=== PATIENT | male | born 1955 | race Caucasian/White ===

== ENCOUNTER 2021-02-24 13:11 | Emergency (ER) | payer SELFPAY ==
[2021-02-24] MEDS ORDERED: methylPREDNISolone Sod Succ/PF 125 MG/2 ML VIAL ONE (13:31)
[2021-02-24 13:40] LABS: #Basophils 0.1 thou/uL (0.0-0.2); #Lymphocytes 0.8 thou/uL (1.20-3.40); #Monocytes 0.6 thou/uL (0.11-0.59); #Neutrophils 3.3 thou/uL (1.40-6.50); %Basophils 1.7 % (0.0-1.0); %Eosinophils 0.7 % (0.0-10.0); %Monocytes 11.6 % (0.0-10.0); Hemoglobin 15.2 g/dL (14.0-18.0); Mean Corpuscular HGB CONC 30.4 g/dL (32.0-36.0); Mean Corpuscular Hemoglobin 27.6 pg (27.0-31.0); Mean Corpuscular Volume 90.9 fL (78.0-98.0); Mean Platelet Volume 11.5 fL (7.4-10.4); Platelet Count 152 thou/uL (130-400); RBC Distribution Width 12.5 % (11.5-14.5); Red Blood Cell (RBC) Count 5.51 mill/uL (4.70-6.10); White Blood Cell (WBC) Count 4.7 thou/uL (4.8-10.8)
[2021-02-24 13:52] LABS: ALT (SGPT) 35 U/L (8-55); AST (SGOT) 24 U/L (5-34); Albumin 4.3 g/dL (3.4-4.8); Alkaline Phosphatase 112 U/L (40-110); Anion Gap 15 mmol/L (10-20); BUN (Urea Nitrogen) 9 mg/dL (8.4-25.7); Bilirubin, Total 1.1 mg/dL (0.2-1.2); CK (CPK) 54 U/L (30-200); Calc. Creatinine Clearance 0 mL/min (70-130); Calcium 9.3 mg/dL (7.8-10.44); Carbon Dioxide 30 mmol/L (23-31); Chloride 98 mmol/L (98-107); Globulin 2.7 g/dL (2.4-3.5); Glucose 118 mg/dL (80-115); Lipase 25 U/L (8-78); Potassium 3.5 mmol/L (3.5-5.1); Sodium 139 mmol/L (136-145)
[2021-02-24] MEDS ORDERED: Sodium Chloride 0.9% 1,000 ML ONE (14:40)
== END 2021-02-24 16:54 | disposition left against medical advice (07) ==
LOC: MADERS 13:11
DX: J44.1 Chronic obstructive pulmonary disease with (acute) exacerbation (principal); F17.210 Nicotine dependence, cigarettes, uncomplicated; Z79.51 Long term (current) use of inhaled steroids; Z79.899 Other long term (current) drug therapy
CPT/HCPCS: 71045; 80053; 82550; 83690; 84484; 85025; 93005; 94760; 96374; J2930; J7050; J7620

== ENCOUNTER 2021-03-03 10:47 | Emergency (ER) | payer SELFPAY ==
[2021-03-03 11:16] LABS: #Basophils 0.1 thou/uL (0.0-0.2); #Lymphocytes 1.7 thou/uL (1.20-3.40); #Monocytes 0.7 thou/uL (0.11-0.59); #Neutrophils 10.8 thou/uL (1.40-6.50); %Basophils 0.6 % (0.0-1.0); %Eosinophils 0.2 % (0.0-10.0); %Lymphocytes 12.5 % (21.0-51.0); %Monocytes 5.4 % (0.0-10.0); %Neutrophils 81.4 % (42.0-75.0); Hemoglobin 15.9 g/dL (14.0-18.0); Mean Corpuscular HGB CONC 31.6 g/dL (32.0-36.0); Mean Corpuscular Hemoglobin 28.2 pg (27.0-31.0); Mean Corpuscular Volume 89.2 fL (78.0-98.0); Mean Platelet Volume 10.9 fL (7.4-10.4); Platelet Count 251 thou/uL (130-400); RBC Distribution Width 12.5 % (11.5-14.5); Red Blood Cell (RBC) Count 5.63 mill/uL (4.70-6.10); White Blood Cell (WBC) Count 13.3 thou/uL (4.8-10.8)
[2021-03-03] MEDS ORDERED: methylPREDNISolone Sod Succ/PF 125 MG/2 ML VIAL ONE (11:33)
[2021-03-03 11:35] LABS: ALT (SGPT) 24 U/L (8-55); AST (SGOT) 11 U/L (5-34); Albumin 4.4 g/dL (3.4-4.8); Alkaline Phosphatase 93 U/L (40-110); Anion Gap 21 mmol/L (10-20); BUN (Urea Nitrogen) 11 mg/dL (8.4-25.7); Calc. Creatinine Clearance 0 mL/min (70-130); Calcium 9.7 mg/dL (7.8-10.44); Carbon Dioxide 29 mmol/L (23-31); Chloride 95 mmol/L (98-107); Globulin 2.8 g/dL (2.4-3.5); Glucose 127 mg/dL (80-115); Magnesium 2.1 mg/dL (1.6-2.6); Potassium 3.2 mmol/L (3.5-5.1); Protein, Total 7.2 g/dL (5.8-8.1); Sodium 142 mmol/L (136-145)
[2021-03-03 11:59] LABS: SARS-CoV-2 NAA Rapid Test Not Detected (NotDetected)
[2021-03-03 12:00] LABS: Base Excess-Venous 10.6 mmol/L (-2.0 to 3.0); Bicarbonate (HCO3v) 39.6 mmol/L (22.0-28.0); CO2 Tension (PvCO2) 68.1 mmHg (42.0-51.0); Calcium, Ionized 1.14 mmol/L (1.15-1.33); Chloride 97 mmol/L (98-107); Hemoglobin - Calc 16.7 g/dL (14.0-18.0); Potassium 2.8 mmol/L (3.5-5.1); Sodium 142 mmol/L (138-145); T. Carbon Dioxide 41.6 mmol/L (22.0-28.0); vO2 Saturation-calc 95.6 % (60.0-85.0)
== END 2021-03-03 17:58 | disposition short-term general hospital (02) ==
LOC: MADERS 10:47
DX: J96.00 Acute respiratory failure, unspecified whether with hypoxia or hypercapnia (principal); J44.1 Chronic obstructive pulmonary disease with (acute) exacerbation; F17.210 Nicotine dependence, cigarettes, uncomplicated; Z79.899 Other long term (current) drug therapy
CPT/HCPCS: 0240U; 71045; 80053; 82330; 82803; 83605; 83735; 83880; 84484; 85025; 87040; 93005; 96374; J2930; J7620

== ENCOUNTER 2022-01-14 12:14 | Outpatient (CLI) | payer MEDICAID | END 2022-01-14 12:15 | disposition home or self-care (01) | LOC: MADLAB 12:14 | PROVIDERS: ATTEND Registered Nurse | DX: M25.512 Pain in left shoulder (principal) ==

== ENCOUNTER 2022-09-02 09:35 | Emergency (ER) | payer MEDICAID, OTHER ==
[2022-09-02] MEDS ORDERED: methylPREDNISolone Sod Succ/PF 125 MG/2 ML VIAL ONE (10:11)
[2022-09-02] MEDS ORDERED: Sodium Chloride 0.9% 1,000 ML ONE (10:11)
[2022-09-02 10:18] LABS: #Basophils 0.1 thou/uL (0.0-0.2); #Eosinphils 0.1 thou/uL (0.0-0.7); #Monocytes 0.5 thou/uL (0.11-0.59); #Neutrophils 5.2 thou/uL (1.40-6.50); %Eosinophils 1.8 % (0.0-10.0); %Lymphocytes 14.5 % (21.0-51.0); %Monocytes 6.5 % (0.0-10.0); %Neutrophils 76.1 % (42.0-75.0); Hemoglobin 14.6 g/dL (14.0-18.0); Mean Corpuscular HGB CONC 31.3 g/dL (32.0-36.0); Mean Corpuscular Hemoglobin 27.3 pg (27.0-31.0); Mean Corpuscular Volume 87.1 fl (78.0-98.0); Mean Platelet Volume 11.5 fL (7.4-10.4); Platelet Count 173 10x3/uL (130-400); RBC Distribution Width 12.2 % (11.5-14.5); Red Blood Cell (RBC) Count 5.34 mill/uL (4.70-6.10); White Blood Cell (WBC) Count 6.8 10x3/uL (4.8-10.8)
[2022-09-02 10:30] LABS: ALT (SGPT) 21 U/L (8-55); AST (SGOT) 18 U/L (5-34); Albumin 4.1 g/dL (3.4-4.8); Alkaline Phosphatase 83 U/L (40-110); Anion Gap 12 mmol/L (10-20); BUN (Urea Nitrogen) 10 mg/dL (8.4-25.7); Bilirubin, Total 1.5 mg/dL (0.2-1.2); Calc. Creatinine Clearance 0 mL/min (70-130); Calcium 9.5 mg/dL (7.8-10.44); Carbon Dioxide 32 mmol/L (23-31); Chloride 96 mmol/L (98-107); Estimated GFR 81; Globulin 2.4 g/dL (2.4-3.5); Glucose 155 mg/dL (80-115); Potassium 3.3 mmol/L (3.5-5.1); Protein, Total 6.5 g/dL (5.8-8.1); Sodium 137 mmol/L (136-145)
[2022-09-02] MEDS ORDERED: Albuterol Sulfate 2.5 mg/3 ml Neb ONE (11:00)
[2022-09-02 11:14] LABS: Bicarbonate (HCO3v) 34.1 mmol/L (22.0-28.0); CO2 Tension (PvCO2) 69.7 mmHg (42.0-51.0); Calcium, Ionized 1.21 mmol/L (1.15-1.33); Chloride 98 mmol/L (98-107); Hemoglobin - Calc 15.1 g/dL (14.0-18.0); Potassium 3.7 mmol/L (3.5-5.1); Sodium 141 mmol/L (138-145); T. Carbon Dioxide 36.3 mmol/L (22.0-28.0); vO2 Saturation-calc 63.2 % (60.0-85.0)
[2022-09-02] MEDS ORDERED: Budesonide 0.5 MG/2 ML NEB NEB SCH (11:15)
== END 2022-09-02 12:42 | disposition left against medical advice (07) ==
LOC: MADERS 09:35
DX: J44.1 Chronic obstructive pulmonary disease with (acute) exacerbation (principal); E87.29 Other acidosis; E87.6 Hypokalemia; F17.210 Nicotine dependence, cigarettes, uncomplicated; Z79.899 Other long term (current) drug therapy
CPT/HCPCS: 36415; 71046; 80053; 82330; 82803; 84484; 85025; 85379; 93005; 94640; 94760; 96361; 96374; J2930; J7050; J7611; J7620; J7626

== ENCOUNTER 2022-12-16 16:31 | Emergency (ER) | payer OTHER ==
[2022-12-16] MEDS ORDERED: Ipratropium/Albuterol 3 ML NEB ONE ×2 (17:08→17:38)
[2022-12-16] MEDS ORDERED: methylPREDNISolone Sod Succ/PF 125 MG/2 ML VIAL ONE (17:08)
[2022-12-16 17:10] LABS: #Basophils 0.1 thou/uL (0.0-0.2); #Eosinphils 0.1 thou/uL (0.0-0.7); #Monocytes 0.5 thou/uL (0.11-0.59); #Neutrophils 6.4 thou/uL (1.40-6.50); %Eosinophils 1.7 % (0.0-10.0); %Lymphocytes 12.2 % (21.0-51.0); %Monocytes 6.5 % (0.0-10.0); %Neutrophils 78.6 % (42.0-75.0); Hemoglobin 15.5 g/dL (14.0-18.0); Mean Corpuscular HGB CONC 31.6 g/dL (32.0-36.0); Mean Corpuscular Hemoglobin 27.8 pg (27.0-31.0); Mean Corpuscular Volume 88.1 fl (78.0-98.0); Mean Platelet Volume 12.1 fL (7.4-10.4); Platelet Count 201 10x3/uL (130-400); Platelet Morphology Comment Appears Adequate; RBC Distribution Width 12.9 % (11.5-14.5); Red Blood Cell (RBC) Count 5.56 mill/uL (4.70-6.10); White Blood Cell (WBC) Count 8.2 10x3/uL (4.8-10.8)
[2022-12-16 17:14] LABS: ALT (SGPT) 29 U/L (8-55); AST (SGOT) 19 U/L (5-34); Albumin 4.7 g/dL (3.4-4.8); Alkaline Phosphatase 113 U/L (40-110); Anion Gap 14 mmol/L (10-20); BUN (Urea Nitrogen) 9 mg/dL (8.4-25.7); Bilirubin, Total 1.6 mg/dL (0.2-1.2); Calc. Creatinine Clearance 0 mL/min (70-130); Calcium 10.2 mg/dL (7.8-10.44); Carbon Dioxide 31 mmol/L (23-31); Chloride 97 mmol/L (98-107); Estimated GFR 82; Globulin 2.5 g/dL (2.4-3.5); Glucose 137 mg/dL (80-115); Magnesium 2.1 mg/dL (1.6-2.6); Potassium 3.8 mmol/L (3.5-5.1); Protein, Total 7.2 g/dL (5.8-8.1); Sodium 138 mmol/L (136-145)
== END 2022-12-16 18:04 | disposition home or self-care (01) ==
LOC: MADERS 16:31
DX: J44.1 Chronic obstructive pulmonary disease with (acute) exacerbation (principal); I27.20 Pulmonary hypertension, unspecified; F17.210 Nicotine dependence, cigarettes, uncomplicated
CPT/HCPCS: 71045; 80053; 83605; 83735; 83880; 84484; 85025; 87040; 93005; 96374; J2930; J7620

== ENCOUNTER 2023-01-01 02:10 | Emergency (ER) | payer OTHER ==
[2023-01-01] MEDS ORDERED: Ipratropium/Albuterol 3 ML NEB ONE ×2 (02:28→08:47)
[2023-01-01 02:35] LABS: #Basophils 0.1 thou/uL (0.0-0.2); #Eosinphils 0.1 thou/uL (0.0-0.7); #Lymphocytes 1.5 thou/uL (1.20-3.40); #Monocytes 0.5 thou/uL (0.11-0.59); #Neutrophils 7.9 thou/uL (1.40-6.50); %Basophils 1.1 % (0.0-1.0); %Eosinophils 1.3 % (0.0-10.0); %Lymphocytes 14.4 % (21.0-51.0); %Neutrophils 78.2 % (42.0-75.0); Hemoglobin 15.2 g/dL (14.0-18.0); Mean Corpuscular HGB CONC 30.4 g/dL (32.0-36.0); Mean Corpuscular Hemoglobin 27.7 pg (27.0-31.0); Mean Corpuscular Volume 91.4 fl (78.0-98.0); Mean Platelet Volume 11.2 fL (7.4-10.4); Platelet Count 212 10x3/uL (130-400); RBC Distribution Width 13.8 % (11.5-14.5); Red Blood Cell (RBC) Count 5.49 mill/uL (4.70-6.10); White Blood Cell (WBC) Count 10.1 10x3/uL (4.8-10.8)
[2023-01-01 02:50] LABS: Base Excess-Venous 2.1 mmol/L (-2.0 to 3.0); Bicarbonate (HCO3v) 32.8 mmol/L (22.0-28.0); CO2 Tension (PvCO2) 77.7 mmHg (42.0-51.0); Calcium, Ionized 1.19 mmol/L (1.15-1.33); Chloride 97 mmol/L (98-107); Hemoglobin - Calc 16.6 g/dL (14.0-18.0); Sodium 137 mmol/L (138-145); T. Carbon Dioxide 35.2 mmol/L (22.0-28.0); vO2 Saturation-calc 70.4 % (60.0-85.0)
[2023-01-01 02:59] LABS: ALT (SGPT) 25 U/L (8-55); AST (SGOT) 17 U/L (5-34); Albumin 3.9 g/dL (3.4-4.8); Alkaline Phosphatase 91 U/L (40-110); Anion Gap 13 mmol/L (10-20); BUN (Urea Nitrogen) 12 mg/dL (8.4-25.7); Bilirubin, Total 1.2 mg/dL (0.2-1.2); Calc. Creatinine Clearance 0 mL/min (70-130); Calcium 9.4 mg/dL (7.8-10.44); Carbon Dioxide 30 mmol/L (23-31); Chloride 99 mmol/L (98-107); Estimated GFR 86; Globulin 2.2 g/dL (2.4-3.5); Glucose 143 mg/dL (80-115); Potassium 4.4 mmol/L (3.5-5.1); Protein, Total 6.1 g/dL (5.8-8.1); Sodium 138 mmol/L (136-145)
[2023-01-01] MEDS ORDERED: cefTRIAXone (ROCEPHIN) 2 GM VIAL ONE (03:30)
[2023-01-01] MEDS ORDERED: Sodium Chloride 0.9% 100 ML ONE (03:30)
[2023-01-01 04:33] LABS: Base Excess-Venous 2.3 mmol/L (-2.0 to 3.0); Bicarbonate (HCO3v) 31.2 mmol/L (22.0-28.0); CO2 Tension (PvCO2) 66.3 mmHg (42.0-51.0); Calcium, Ionized 1.07 mmol/L (1.15-1.33); Chloride 100 mmol/L (98-107); Hemoglobin - Calc 15.2 g/dL (14.0-18.0); Potassium 4.1 mmol/L (3.5-5.1); Sodium 140 mmol/L (138-145); T. Carbon Dioxide 33.2 mmol/L (22.0-28.0); vO2 Saturation-calc 91.3 % (60.0-85.0)
[2023-01-01 08:10] LABS: Base Excess-Venous 1.4 mmol/L (-2.0 to 3.0); Bicarbonate (HCO3v) 29.8 mmol/L (22.0-28.0); CO2 Tension (PvCO2) 60.7 mmHg (42.0-51.0); Calcium, Ionized 1.13 mmol/L (1.15-1.33); Chloride 98 mmol/L (98-107); Hemoglobin - Calc 16.6 g/dL (14.0-18.0); Potassium 4.9 mmol/L (3.5-5.1); Sodium 136 mmol/L (138-145); T. Carbon Dioxide 31.7 mmol/L (22.0-28.0); vO2 Saturation-calc 77.4 % (60.0-85.0)
== END 2023-01-01 10:26 | disposition short-term general hospital (02) ==
LOC: MADERS 02:10
DX: J44.1 Chronic obstructive pulmonary disease with (acute) exacerbation (principal); R09.02 Hypoxemia; F17.210 Nicotine dependence, cigarettes, uncomplicated; Z79.899 Other long term (current) drug therapy
CPT/HCPCS: 71045; 80053; 82330; 82803; 83605; 83880; 84484; 85025; 85379; 87040; 93005; 94760; 96361; 96365; J0696; J3490; J7620

== ENCOUNTER 2023-01-27 12:05 | Emergency (ER) | payer MEDICARE, MEDICAID ==
[2023-01-27] MEDS ORDERED: Ipratropium Bromide 2.5 ml Neb ONE (12:29)
[2023-01-27] MEDS ORDERED: Albuterol 2.5 MG/0.5 ML NEB ONE (12:29)
[2023-01-27] MEDS ORDERED: methylPREDNISolone Sod Succ/PF 125 MG/2 ML VIAL ONE (12:39)
[2023-01-27 12:44] LABS: #Lymphocytes 0.7 thou/uL (1.20-3.40); #Monocytes 0.1 thou/uL (0.11-0.59); #Neutrophils 9.5 thou/uL (1.40-6.50); %Basophils 0.5 % (0.0-1.0); %Eosinophils 0.2 % (0.0-10.0); %Lymphocytes 6.6 % (21.0-51.0); %Monocytes 1.2 % (0.0-10.0); %Neutrophils 91.5 % (42.0-75.0); Hemoglobin 14.8 g/dL (14.0-18.0); Mean Corpuscular HGB CONC 31.7 g/dL (32.0-36.0); Mean Corpuscular Hemoglobin 27.7 pg (27.0-31.0); Mean Corpuscular Volume 87.4 fl (78.0-98.0); Mean Platelet Volume 10.5 fL (7.4-10.4); Platelet Count 221 10x3/uL (130-400); RBC Distribution Width 13.5 % (11.5-14.5); Red Blood Cell (RBC) Count 5.34 mill/uL (4.70-6.10); White Blood Cell (WBC) Count 10.4 10x3/uL (4.8-10.8)
[2023-01-27 13:02] LABS: ALT (SGPT) 17 U/L (8-55); AST (SGOT) 11 U/L (5-34); Albumin 4.2 g/dL (3.4-4.8); Alkaline Phosphatase 67 U/L (40-110); Anion Gap 14 mmol/L (10-20); BUN (Urea Nitrogen) 14 mg/dL (8.4-25.7); Bilirubin, Total 1.3 mg/dL (0.2-1.2); Calc. Creatinine Clearance 0 mL/min (70-130); Calcium 9.6 mg/dL (7.8-10.44); Carbon Dioxide 30 mmol/L (23-31); Chloride 96 mmol/L (98-107); Estimated GFR 75; Globulin 2.3 g/dL (2.4-3.5); Glucose 246 mg/dL (80-115); Potassium 3.7 mmol/L (3.5-5.1); Protein, Total 6.5 g/dL (5.8-8.1); Sodium 136 mmol/L (136-145)
[2023-01-27 13:14] LABS: Base Excess-Venous 6.7 mmol/L (-2.0 to 3.0); Bicarbonate (HCO3v) 35.8 mmol/L (22.0-28.0); CO2 Tension (PvCO2) 67.4 mmHg (42.0-51.0); vO2 Saturation-calc 80.2 % (60.0-85.0)
[2023-01-27 13:15] LABS: Calcium, Ionized 1.21 mmol/L (1.15-1.33); Chloride 96 mmol/L (98-107); Potassium 3.6 mmol/L (3.5-5.1); Sodium 135 mmol/L (138-145); T. Carbon Dioxide 37.8 mmol/L (22.0-28.0)
== END 2023-01-27 14:05 | disposition home or self-care (01) ==
LOC: MADERS 12:05
DX: J44.1 Chronic obstructive pulmonary disease with (acute) exacerbation (principal); F17.210 Nicotine dependence, cigarettes, uncomplicated
CPT/HCPCS: 71045; 80053; 82330; 82803; 83880; 84484; 85014; 85025; 93005; 94760; 96374; J2930; J7611

== ENCOUNTER 2023-02-05 03:48 | Emergency (ER) | payer MEDICARE, MEDICAID ==
[2023-02-05] MEDS ORDERED: Ipratropium/Albuterol 3 ML NEB ONE ×4 (04:08→15:26)
[2023-02-05 12:36] LABS: SARS-CoV-2 NAA Rapid Test Not Detected (NotDetected)
[2023-02-05] MEDS ORDERED: methylPREDNISolone Sod Succ/PF 125 MG/2 ML VIAL ONE (15:21)
[2023-02-05] MEDS ORDERED: Calcium Carbonate 500 MG ChewTAB ONE (15:25)
[2023-02-05] MEDS ORDERED: Magnesium 2 GM/50 ML BAG (IN WATER) ONE (15:30)
== END 2023-02-05 17:15 | disposition short-term general hospital (02) ==
LOC: MADERS 03:48
DX: J44.1 Chronic obstructive pulmonary disease with (acute) exacerbation (principal); J96.01 Acute respiratory failure with hypoxia; F17.210 Nicotine dependence, cigarettes, uncomplicated; Z79.899 Other long term (current) drug therapy; Z20.822 Contact with and (suspected) exposure to COVID-19
CPT/HCPCS: 71045; 96365; 96375; J2930; J3475; J7620; U0002

== ENCOUNTER 2023-05-02 18:56 | Emergency (ER) | payer MEDICARE, OTHER, MEDICAID ==
[2023-05-02] MEDS ORDERED: Ipratropium/Albuterol 3 ML NEB ONE ×3 (19:06→20:00)
[2023-05-02] MEDS ORDERED: Albuterol 2.5 MG/0.5 ML NEB ONE ×3 (19:06→20:00)
[2023-05-02] MEDS ORDERED: cefTRIAXone (ROCEPHIN) 1 GM VIAL ONE (19:15)
[2023-05-02] MEDS ORDERED: Sodium Chloride 0.9% 1,000 ML ONE (19:15)
[2023-05-02] MEDS ORDERED: Sodium Chloride 0.9% 100 ML ONE (19:15)
[2023-05-02] MEDS ORDERED: methylPREDNISolone Sod Succ/PF 125 MG/2 ML VIAL ONE (19:15)
[2023-05-02 19:27] LABS: #Basophils 0.1 thou/uL (0.0-0.2); #Eosinphils 0.2 thou/uL (0.0-0.7); #Monocytes 0.5 thou/uL (0.11-0.59); #Neutrophils 4.5 thou/uL (1.40-6.50); %Basophils 1.5 % (0.0-1.0); %Eosinophils 2.6 % (0.0-10.0); %Lymphocytes 16.1 % (21.0-51.0); %Monocytes 7.8 % (0.0-10.0); %Neutrophils 71.9 % (42.0-75.0); Hematocrit 43.1 % (42.0-52.0); Hemoglobin 13.9 g/dL (14.0-18.0); Mean Corpuscular HGB CONC 32.1 g/dL (32.0-36.0); Mean Corpuscular Hemoglobin 28.4 pg (27.0-31.0); Mean Corpuscular Volume 88.4 fl (78.0-98.0); Mean Platelet Volume 10.6 fL (7.4-10.4); Platelet Count 175 10x3/uL (130-400); RBC Distribution Width 13.5 % (11.5-14.5); Red Blood Cell (RBC) Count 4.88 mill/uL (4.70-6.10); White Blood Cell (WBC) Count 6.2 10x3/uL (4.8-10.8)
[2023-05-02 19:37] LABS: Base Excess-Venous 4.9 mmol/L (-2.0 to 3.0); Bicarbonate (HCO3v) 32.8 mmol/L (22.0-28.0); CO2 Tension (PvCO2) 60.8 mmHg (42.0-51.0); Chloride 100 mmol/L (98-107); Hemoglobin - Calc 15.5 g/dL (14.0-18.0); Potassium 3.6 mmol/L (3.5-5.1); Sodium 137 mmol/L (138-145); T. Carbon Dioxide 34.7 mmol/L (22.0-28.0); vO2 Saturation-calc 76.9 % (60.0-85.0)
[2023-05-02 19:38] LABS: ALT (SGPT) 14 U/L (8-55); AST (SGOT) 17 U/L (5-34); Albumin 4.1 g/dL (3.4-4.8); Alkaline Phosphatase 77 U/L (40-110); Anion Gap 14 mmol/L (10-20); BUN (Urea Nitrogen) 8 mg/dL (8.4-25.7); Bilirubin, Total 1.3 mg/dL (0.2-1.2); Calc. Creatinine Clearance 0 mL/min (70-130); Calcium 9.5 mg/dL (7.8-10.44); Carbon Dioxide 30 mmol/L (23-31); Chloride 100 mmol/L (98-107); Estimated GFR 96; Globulin 2.5 g/dL (2.4-3.5); Glucose 135 mg/dL (80-115); Potassium 3.8 mmol/L (3.5-5.1); Protein, Total 6.6 g/dL (5.8-8.1); Sodium 140 mmol/L (136-145)
== END 2023-05-02 20:46 | disposition home or self-care (01) ==
LOC: MADERS 18:56
DX: J44.1 Chronic obstructive pulmonary disease with (acute) exacerbation (principal); F17.210 Nicotine dependence, cigarettes, uncomplicated; Z79.899 Other long term (current) drug therapy
CPT/HCPCS: 71045; 80053; 82330; 82803; 85025; 93005; 94660; 94760; 96365; 96375; J0696; J2930; J3490; J7050; J7611; J7620

== ENCOUNTER 2023-05-04 06:59 | Emergency (ER) | payer MEDICARE, OTHER ==
[2023-05-04] MEDS ORDERED: Albuterol 2.5 MG/0.5 ML NEB ONE (07:20)
[2023-05-04 07:32] LABS: #Lymphocytes 0.6 thou/uL (1.20-3.40); #Monocytes 0.3 thou/uL (0.11-0.59); #Neutrophils 7.6 thou/uL (1.40-6.50); %Basophils 0.2 % (0.0-1.0); %Eosinophils 0.1 % (0.0-10.0); %Lymphocytes 7.1 % (21.0-51.0); %Monocytes 3.2 % (0.0-10.0); %Neutrophils 89.4 % (42.0-75.0); Hematocrit 38.6 % (42.0-52.0); Hemoglobin 12.3 g/dL (14.0-18.0); Mean Corpuscular Hemoglobin 28.6 pg (27.0-31.0); Mean Corpuscular Volume 89.4 fl (78.0-98.0); Mean Platelet Volume 10.9 fL (7.4-10.4); Platelet Count 168 10x3/uL (130-400); RBC Distribution Width 13.4 % (11.5-14.5); Red Blood Cell (RBC) Count 4.32 mill/uL (4.70-6.10); White Blood Cell (WBC) Count 8.5 10x3/uL (4.8-10.8)
[2023-05-04 07:46] LABS: Base Excess-Venous 1.2 mmol/L (-2.0 to 3.0); CO2 Tension (PvCO2) 59.6 mmHg (42.0-51.0); Calcium, Ionized 1.14 mmol/L (1.15-1.33); Chloride 107 mmol/L (98-107); Hemoglobin - Calc 12.9 g/dL (14.0-18.0); Potassium 3.7 mmol/L (3.5-5.1); Sodium 141 mmol/L (138-145); T. Carbon Dioxide 30.8 mmol/L (22.0-28.0); vO2 Saturation-calc 79.3 % (60.0-85.0)
[2023-05-04 07:53] LABS: ALT (SGPT) 12 U/L (8-55); AST (SGOT) 11 U/L (5-34); Albumin 3.8 g/dL (3.4-4.8); Alkaline Phosphatase 59 U/L (40-110); Anion Gap 15 mmol/L (10-20); BUN (Urea Nitrogen) 12 mg/dL (8.4-25.7); Bilirubin, Total 0.6 mg/dL (0.2-1.2); Calc. Creatinine Clearance 0 mL/min (70-130); Calcium 8.6 mg/dL (7.8-10.44); Carbon Dioxide 27 mmol/L (23-31); Chloride 105 mmol/L (98-107); Estimated GFR 97; Glucose 128 mg/dL (80-115); Potassium 3.8 mmol/L (3.5-5.1); Protein, Total 5.8 g/dL (5.8-8.1); Sodium 143 mmol/L (136-145)
[2023-05-04 07:57] LABS: Troponin I Less than 0.010 ng/mL (< 0.028)
== END 2023-05-04 09:05 | disposition home or self-care (01) ==
LOC: MADERS 06:59
DX: J44.1 Chronic obstructive pulmonary disease with (acute) exacerbation (principal); F17.210 Nicotine dependence, cigarettes, uncomplicated
CPT/HCPCS: 71045; 80053; 82330; 82803; 83605; 83880; 84484; 85025; 93005; 94760; J7611

== ENCOUNTER 2023-05-18 09:51 | Emergency (ER) | payer OTHER, MEDICARE ==
[2023-05-18] MEDS ORDERED: methylPREDNISolone Sod Succ/PF 125 MG/2 ML VIAL ONE (10:11)
[2023-05-18] MEDS ORDERED: Ipratropium/Albuterol 3 ML NEB ONE ×3 (10:11→11:24)
[2023-05-18] MEDS ORDERED: Sodium Chloride 0.9% 500 ML ONE ×2 (10:11→12:50)
[2023-05-18 10:12] LABS: #Basophils 0.1 thou/uL (0.0-0.2); #Eosinphils 0.1 thou/uL (0.0-0.7); #Lymphocytes 1.3 thou/uL (1.20-3.40); #Monocytes 0.4 thou/uL (0.11-0.59); #Neutrophils 6.1 thou/uL (1.40-6.50); %Basophils 1.3 % (0.0-1.0); %Eosinophils 1.4 % (0.0-10.0); %Lymphocytes 16.3 % (21.0-51.0); %Monocytes 4.8 % (0.0-10.0); %Neutrophils 76.2 % (42.0-75.0); Hematocrit 47.6 % (42.0-52.0); Hemoglobin 15.2 g/dL (14.0-18.0); Mean Corpuscular HGB CONC 31.8 g/dL (32.0-36.0); Mean Corpuscular Hemoglobin 28.3 pg (27.0-31.0); Mean Corpuscular Volume 88.9 fl (78.0-98.0); Mean Platelet Volume 9.6 fL (7.4-10.4); Platelet Count 243 10x3/uL (130-400); RBC Distribution Width 13.7 % (11.5-14.5); Red Blood Cell (RBC) Count 5.36 mill/uL (4.70-6.10); White Blood Cell (WBC) Count 7.9 10x3/uL (4.8-10.8)
[2023-05-18 10:32] LABS: ALT (SGPT) 15 U/L (8-55); AST (SGOT) 12 U/L (5-34); Albumin 4.4 g/dL (3.4-4.8); Alkaline Phosphatase 74 U/L (40-110); Anion Gap 13 mmol/L (10-20); BUN (Urea Nitrogen) 9 mg/dL (8.4-25.7); Bilirubin, Total 1.3 mg/dL (0.2-1.2); Calc. Creatinine Clearance 0 mL/min (70-130); Calcium 9.6 mg/dL (7.8-10.44); Carbon Dioxide 32 mmol/L (23-31); Chloride 97 mmol/L (98-107); Estimated GFR 90; Globulin 2.6 g/dL (2.4-3.5); Glucose 141 mg/dL (80-115); Magnesium 2.1 mg/dL (1.6-2.6); Potassium 3.7 mmol/L (3.5-5.1); Sodium 138 mmol/L (136-145)
[2023-05-18 12:43] LABS: Troponin I Less than 0.010 ng/mL (< 0.028)
[2023-05-18 13:07] LABS: Follow-up Chemistry Comp? YES
== END 2023-05-18 13:20 | disposition home or self-care (01) ==
LOC: MADERS 09:51
DX: J44.1 Chronic obstructive pulmonary disease with (acute) exacerbation (principal); F17.210 Nicotine dependence, cigarettes, uncomplicated
CPT/HCPCS: 71045; 80053; 83735; 83880; 84484; 85025; 93005; 96374; J2930; J7030; J7620

== ENCOUNTER 2023-05-24 17:18 | Emergency (ER) | payer OTHER, MEDICARE ==
[2023-05-24] MEDS ORDERED: Dexamethasone 10 MG/ML VIAL ONE (17:25)
[2023-05-24] MEDS ORDERED: Ipratropium/Albuterol 3 ML NEB ONE ×2 (17:25→18:03)
[2023-05-24 17:41] LABS: #Basophils 0.1 thou/uL (0.0-0.2); #Eosinphils 0.1 thou/uL (0.0-0.7); #Lymphocytes 1.8 thou/uL (1.20-3.40); #Monocytes 0.6 thou/uL (0.11-0.59); #Neutrophils 9.5 thou/uL (1.40-6.50); %Basophils 1.2 % (0.0-1.0); %Eosinophils 1.2 % (0.0-10.0); %Lymphocytes 14.7 % (21.0-51.0); %Monocytes 4.7 % (0.0-10.0); %Neutrophils 78.2 % (42.0-75.0); Hematocrit 46.8 % (42.0-52.0); Hemoglobin 14.9 g/dL (14.0-18.0); Mean Corpuscular HGB CONC 31.8 g/dL (32.0-36.0); Mean Corpuscular Volume 88.1 fl (78.0-98.0); Mean Platelet Volume 10.2 fL (7.4-10.4); Platelet Count 244 10x3/uL (130-400); Red Blood Cell (RBC) Count 5.32 mill/uL (4.70-6.10); White Blood Cell (WBC) Count 12.2 10x3/uL (4.8-10.8)
[2023-05-24 17:55] LABS: ALT (SGPT) 12 U/L (8-55); AST (SGOT) 10 U/L (5-34); Albumin 4.2 g/dL (3.4-4.8); Alkaline Phosphatase 69 U/L (40-110); Anion Gap 15 mmol/L (10-20); BUN (Urea Nitrogen) 11 mg/dL (8.4-25.7); Bilirubin, Total 0.8 mg/dL (0.2-1.2); Calc. Creatinine Clearance 0 mL/min (70-130); Calcium 9.2 mg/dL (7.8-10.44); Carbon Dioxide 30 mmol/L (23-31); Chloride 100 mmol/L (98-107); Estimated GFR 82; Globulin 2.5 g/dL (2.4-3.5); Glucose 159 mg/dL (80-115); Potassium 3.6 mmol/L (3.5-5.1); Protein, Total 6.7 g/dL (5.8-8.1)
[2023-05-24 17:59] LABS: Sodium 141 mmol/L (136-145)
[2023-05-24] MEDS ORDERED: Magnesium 2 GM/50 ML BAG (IN WATER) ONE (18:03)
[2023-05-24] MEDS ORDERED: Albuterol 2.5 MG/0.5 ML NEB ONE (18:38)
== END 2023-05-24 19:25 | disposition home or self-care (01) ==
LOC: MADERS 17:18
DX: J44.1 Chronic obstructive pulmonary disease with (acute) exacerbation (principal); F17.210 Nicotine dependence, cigarettes, uncomplicated; Z79.899 Other long term (current) drug therapy
CPT/HCPCS: 71045; 80053; 83880; 85025; 93005; 96374; 96375; J1100; J3475; J7611; J7620

== ENCOUNTER 2023-06-01 09:59 | Emergency (ER) | payer OTHER, MEDICARE | END 2023-06-01 10:45 | disposition home or self-care (01) | LOC: MADERS 09:59 | DX: U07.1 COVID-19 (principal); J44.9 Chronic obstructive pulmonary disease, unspecified; F17.210 Nicotine dependence, cigarettes, uncomplicated | CPT/HCPCS: 87635; 99284 ==

== ENCOUNTER 2023-06-02 10:16 | Emergency (ER) | payer OTHER, MEDICARE ==
[2023-06-02] MEDS ORDERED: Ipratropium/Albuterol 3 ML NEB ONE ×2 (10:43→12:47)
[2023-06-02] MEDS ORDERED: Magnesium 2 GM/50 ML BAG (IN WATER) ONE (10:47)
[2023-06-02 11:37] LABS: Band 8 % (5-11); Eosinophils 1 % (0-10); Hematocrit 42.2 % (42.0-52.0); Hemoglobin 13.9 g/dL (14.0-18.0); Lymphocytes 6 % (21-51); MDiff Complete? YES; Mean Corpuscular HGB CONC 32.9 g/dL (32.0-36.0); Mean Corpuscular Hemoglobin 28.2 pg (27.0-31.0); Mean Corpuscular Volume 85.9 fl (78.0-98.0); Mean Platelet Volume 10.6 fL (7.4-10.4); Monocytes 4 % (0-10); Neutrophil 80 % (42-75); Platelet Adequacy Comment Appears Adequate; Platelet Count 210 10x3/uL (130-400); RBC Distribution Width 12.9 % (11.5-14.5); Reactive Lymphocytes 1 % (0-10); Red Blood Cell (RBC) Count 4.92 mill/uL (4.70-6.10); White Blood Cell (WBC) Count 11.5 10x3/uL (4.8-10.8)
[2023-06-02 11:38] LABS: ALT (SGPT) 16 U/L (8-55); AST (SGOT) 12 U/L (5-34); Alkaline Phosphatase 69 U/L (40-110); Anion Gap 15 mmol/L (10-20); BUN (Urea Nitrogen) 12 mg/dL (8.4-25.7); Calc. Creatinine Clearance 0 mL/min (70-130); Calcium 9.2 mg/dL (7.8-10.44); Carbon Dioxide 29 mmol/L (23-31); Chloride 100 mmol/L (98-107); Estimated GFR 97; Globulin 2.4 g/dL (2.4-3.5); Glucose 119 mg/dL (80-115); Potassium 3.8 mmol/L (3.5-5.1); Protein, Total 6.4 g/dL (5.8-8.1); Sodium 140 mmol/L (136-145)
[2023-06-02 11:39] LABS: Troponin I Less than 0.010 ng/mL (< 0.028)
== END 2023-06-02 13:50 | disposition left against medical advice (07) ==
LOC: MADERS 10:16
DX: U07.1 COVID-19 (principal); J44.9 Chronic obstructive pulmonary disease, unspecified; F17.210 Nicotine dependence, cigarettes, uncomplicated
CPT/HCPCS: 71045; 80053; 84484; 85025; 93005; 96365; J3475; J7620

== ENCOUNTER 2023-06-28 13:03 | Emergency (ER) | payer MEDICARE ==
[~2023-06-28 13:03] MED LIST: Albuterol 2.5 MG/0.5 ML NEB ONE; Ipratropium/Albuterol 3 ML NEB ONE
[2023-06-28] MEDS ORDERED: methylPREDNISolone Sod Succ/PF 125 MG/2 ML VIAL ONE (13:23)
[2023-06-28] MEDS ORDERED: Magnesium 2 GM/50 ML BAG (IN WATER) ONE (13:23)
[2023-06-28 13:26] LABS: #Basophils 0.1 thou/uL (0.0-0.2); #Monocytes 0.3 thou/uL (0.11-0.59); #Neutrophils 11.1 thou/uL (1.40-6.50); %Basophils 0.6 % (0.0-1.0); %Eosinophils 0.2 % (0.0-10.0); %Monocytes 2.4 % (0.0-10.0); %Neutrophils 88.8 % (42.0-75.0); Hematocrit 47.7 % (42.0-52.0); Hemoglobin 14.8 g/dL (14.0-18.0); Mean Corpuscular Hemoglobin 27.8 pg (27.0-31.0); Mean Corpuscular Volume 89.7 fl (78.0-98.0); Mean Platelet Volume 9.6 fL (7.4-10.4); Platelet Count 286 10x3/uL (130-400); RBC Distribution Width 13.7 % (11.5-14.5); Red Blood Cell (RBC) Count 5.31 mill/uL (4.70-6.10); White Blood Cell (WBC) Count 12.5 10x3/uL (4.8-10.8)
[2023-06-28 13:37] LABS: ALT (SGPT) 16 U/L (8-55); AST (SGOT) 11 U/L (5-34); Albumin 4.7 g/dL (3.4-4.8); Alkaline Phosphatase 79 U/L (40-110); Anion Gap 18 mmol/L (10-20); BUN (Urea Nitrogen) 11 mg/dL (8.4-25.7); Calc. Creatinine Clearance 0 mL/min (70-130); Calcium 9.9 mg/dL (7.8-10.44); Carbon Dioxide 28 mmol/L (23-31); Chloride 97 mmol/L (98-107); Estimated GFR 95; Globulin 2.8 g/dL (2.4-3.5); Glucose 145 mg/dL (80-115); Potassium 3.8 mmol/L (3.5-5.1); Protein, Total 7.5 g/dL (5.8-8.1); Sodium 139 mmol/L (136-145)
[2023-06-28] MEDS ORDERED: Albuterol 2.5 MG/0.5 ML NEB ONE ×2 (13:38→14:15)
[2023-06-28] MEDS ORDERED: Ipratropium/Albuterol 3 ML NEB ONE ×2 (13:38→14:15)
[2023-06-28] MEDS ORDERED: cefTRIAXone (ROCEPHIN) 1 GM VIAL ONE (14:23)
[2023-06-28] MEDS ORDERED: Sodium Chloride 0.9% 100 ML ONE (14:23)
== END 2023-06-28 14:55 | disposition home or self-care (01) ==
LOC: MADERS 13:03
DX: J44.1 Chronic obstructive pulmonary disease with (acute) exacerbation (principal); F17.210 Nicotine dependence, cigarettes, uncomplicated; Z79.899 Other long term (current) drug therapy
CPT/HCPCS: 71045; 80053; 85025; 94760; 96365; 96375; J0696; J2930; J3475; J3490; J7611; J7620

== ENCOUNTER 2023-07-12 11:53 | Emergency (ER) | payer MEDICARE, OTHER ==
[2023-07-12] MEDS ORDERED: Ipratropium/Albuterol 3 ML NEB ONE ×3 (12:40→14:58)
[2023-07-12] MEDS ORDERED: Cefepime 1 GM VIAL ONE (12:51)
[2023-07-12] MEDS ORDERED: methylPREDNISolone Sod Succ/PF 125 MG/2 ML VIAL ONE (12:51)
[2023-07-12] MEDS ORDERED: Sterile Water 10 ML ONE (12:51)
== END 2023-07-12 15:37 | disposition left against medical advice (07) ==
LOC: MADERS 11:53
DX: J44.0 Chronic obstructive pulmonary disease with (acute) lower respiratory infection (principal); J20.9 Acute bronchitis, unspecified; J44.1 Chronic obstructive pulmonary disease with (acute) exacerbation; Z87.891 Personal history of nicotine dependence; Z79.899 Other long term (current) drug therapy
CPT/HCPCS: 71045; 96372; J0692; J2930; J7620

== ENCOUNTER 2023-07-20 10:14 | Emergency (ER) | payer MEDICARE, OTHER ==
[2023-07-20] MEDS ORDERED: methylPREDNISolone Sod Succ/PF 125 MG/2 ML VIAL ONE (10:39)
[2023-07-20] MEDS ORDERED: Ipratropium/Albuterol 3 ML NEB ONE (10:39)
[2023-07-20 11:00] LABS: #Lymphocytes 0.6 thou/uL (1.20-3.40); #Monocytes 0.3 thou/uL (0.11-0.59); #Neutrophils 12.2 thou/uL (1.40-6.50); %Basophils 0.3 % (0.0-1.0); %Eosinophils 0.2 % (0.0-10.0); %Lymphocytes 4.2 % (21.0-51.0); %Neutrophils 93.3 % (42.0-75.0); Hematocrit 44.4 % (42.0-52.0); Hemoglobin 13.7 g/dL (14.0-18.0); Mean Corpuscular HGB CONC 30.9 g/dL (32.0-36.0); Mean Corpuscular Hemoglobin 27.7 pg (27.0-31.0); Mean Corpuscular Volume 89.7 fl (78.0-98.0); Mean Platelet Volume 9.6 fL (7.4-10.4); Platelet Count 196 10x3/uL (130-400); RBC Distribution Width 13.4 % (11.5-14.5); Red Blood Cell (RBC) Count 4.95 mill/uL (4.70-6.10); White Blood Cell (WBC) Count 13.1 10x3/uL (4.8-10.8)
[2023-07-20] MEDS ORDERED: Doxycycline 100 MG CAP ONE (11:01)
[2023-07-20] MEDS ORDERED: Sodium Chloride 0.9% 500 ML ONE (11:01)
[2023-07-20 11:15] LABS: ALT (SGPT) 15 U/L (8-55); AST (SGOT) 11 U/L (5-34); Albumin 4.2 g/dL (3.4-4.8); Alkaline Phosphatase 59 U/L (40-110); Anion Gap 13 mmol/L (10-20); BUN (Urea Nitrogen) 11 mg/dL (8.4-25.7); Bilirubin, Total 1.5 mg/dL (0.2-1.2); Calc. Creatinine Clearance 0 mL/min (70-130); Calcium 9.1 mg/dL (7.8-10.44); Carbon Dioxide 35 mmol/L (23-31); Chloride 95 mmol/L (98-107); Estimated GFR 99; Globulin 2.2 g/dL (2.4-3.5); Glucose 135 mg/dL (80-115); Magnesium 2.2 mg/dL (1.6-2.6); Potassium 3.7 mmol/L (3.5-5.1); Protein, Total 6.4 g/dL (5.8-8.1); Sodium 139 mmol/L (136-145)
[2023-07-20 11:20] LABS: Troponin I Less than 0.010 ng/mL (< 0.028)
== END 2023-07-20 11:50 | disposition home or self-care (01) ==
LOC: MADERS 10:14
DX: J44.1 Chronic obstructive pulmonary disease with (acute) exacerbation (principal); F17.210 Nicotine dependence, cigarettes, uncomplicated
CPT/HCPCS: 36415; 71045; 80053; 83735; 83880; 84484; 85025; 93005; 96374; J2930; J7030; J7620

== ENCOUNTER 2023-08-08 13:07 | Emergency (ER) | payer MEDICARE, MEDICAID ==
[2023-08-08] MEDS ORDERED: Ipratropium/Albuterol 3 ML NEB ONE (13:12)
[2023-08-08] MEDS ORDERED: methylPREDNISolone Sod Succ/PF 125 MG/2 ML VIAL ONE (13:31)
[2023-08-08] MEDS ORDERED: Sodium Chloride 0.9% 1,000 ML ONE (13:31)
[2023-08-08 13:53] LABS: ALT (SGPT) 23 U/L (8-55); AST (SGOT) 13 U/L (5-34); Albumin 4.3 g/dL (3.4-4.8); Alkaline Phosphatase 56 U/L (40-110); Anion Gap 20 mmol/L (10-20); BUN (Urea Nitrogen) 14 mg/dL (8.4-25.7); Bilirubin, Total 1.5 mg/dL (0.2-1.2); Calc. Creatinine Clearance 0 mL/min (70-130); Calcium 9.4 mg/dL (7.8-10.44); Carbon Dioxide 25 mmol/L (23-31); Chloride 95 mmol/L (98-107); Estimated GFR 90; Globulin 2.1 g/dL (2.4-3.5); Glucose 226 mg/dL (80-115); Magnesium 2.2 mg/dL (1.6-2.6); Potassium 4.3 mmol/L (3.5-5.1); Protein, Total 6.4 g/dL (5.8-8.1); Sodium 136 mmol/L (136-145)
[2023-08-08 13:54] LABS: Troponin I Less than 0.010 ng/mL (< 0.028)
[2023-08-08 13:57] LABS: Hematocrit 47.2 % (42.0-52.0); Hemoglobin 14.8 g/dL (14.0-18.0); Mean Corpuscular HGB CONC 31.5 g/dL (32.0-36.0); Mean Corpuscular Hemoglobin 27.8 pg (27.0-31.0); Mean Corpuscular Volume 88.5 fl (78.0-98.0); Mean Platelet Volume 7.9 fL (7.4-10.4); Platelet Count 183 10x3/uL (130-400); RBC Distribution Width 13.6 % (11.5-14.5); Red Blood Cell (RBC) Count 5.33 mill/uL (4.70-6.10); White Blood Cell (WBC) Count 13.9 10x3/uL (4.8-10.8)
[2023-08-08 13:58] LABS: Band 10 % (5-11); Lymphocytes 1 % (21-51); MDiff Complete? YES; Monocytes 4 % (0-10); Neutrophil 85 % (42-75); Platelet Adequacy Comment Appears Adequate
== END 2023-08-08 15:40 | disposition home or self-care (01) ==
LOC: MADERS 13:07
DX: J44.1 Chronic obstructive pulmonary disease with (acute) exacerbation (principal); F17.210 Nicotine dependence, cigarettes, uncomplicated
CPT/HCPCS: 71045; 80053; 83735; 83880; 84484; 85025; 93005; 96361; 96374; J2930; J7050; J7620

== ENCOUNTER 2023-08-18 14:16 | Emergency (ER) | payer MEDICARE, OTHER ==
[2023-08-18] MEDS ORDERED: Ondansetron PF 4 MG/2 ML Vial ONE (14:39)
[2023-08-18] MEDS ORDERED: Ipratropium/Albuterol 3 ML NEB ONE (14:39)
[2023-08-18] MEDS ORDERED: Acetaminophen 325 MG TAB ONE (14:39)
[2023-08-18 15:03] LABS: #Basophils 0.1 thou/uL (0.0-0.2); #Lymphocytes 0.5 thou/uL (1.20-3.40); #Monocytes 0.3 thou/uL (0.11-0.59); #Neutrophils 7.4 thou/uL (1.40-6.50); %Basophils 0.9 % (0.0-1.0); %Eosinophils 0.2 % (0.0-10.0); %Lymphocytes 6.1 % (21.0-51.0); %Monocytes 3.2 % (0.0-10.0); %Neutrophils 89.5 % (42.0-75.0); Hematocrit 42.9 % (42.0-52.0); Hemoglobin 13.3 g/dL (14.0-18.0); Mean Corpuscular Hemoglobin 27.8 pg (27.0-31.0); Mean Corpuscular Volume 89.8 fl (78.0-98.0); Mean Platelet Volume 9.1 fL (7.4-10.4); Platelet Count 148 10x3/uL (130-400); Red Blood Cell (RBC) Count 4.77 mill/uL (4.70-6.10); White Blood Cell (WBC) Count 8.2 10x3/uL (4.8-10.8)
[2023-08-18 15:17] LABS: ALT (SGPT) 17 U/L (8-55); AST (SGOT) 13 U/L (5-34); Albumin 3.8 g/dL (3.4-4.8); Alkaline Phosphatase 68 U/L (40-110); Anion Gap 13 mmol/L (10-20); BUN (Urea Nitrogen) 10 mg/dL (8.4-25.7); Bilirubin, Total 1.1 mg/dL (0.2-1.2); Calc. Creatinine Clearance 0 mL/min (70-130); Carbon Dioxide 37 mmol/L (23-31); Estimated GFR 99; Globulin 2.3 g/dL (2.4-3.5); Glucose 133 mg/dL (80-115); Lipase 14 U/L (8-78); Protein, Total 6.1 g/dL (5.8-8.1)
[2023-08-18 15:24] LABS: Chloride 92 mmol/L (98-107); Sodium 139 mmol/L (136-145)
== END 2023-08-18 16:48 | disposition home or self-care (01) ==
LOC: MADERS 14:16
DX: R11.2 Nausea with vomiting, unspecified (principal); J44.1 Chronic obstructive pulmonary disease with (acute) exacerbation; J44.9 Chronic obstructive pulmonary disease, unspecified; F17.210 Nicotine dependence, cigarettes, uncomplicated; Z20.822 Contact with and (suspected) exposure to COVID-19
CPT/HCPCS: 36415; 71045; 80053; 83690; 85025; 87635; 87804; 94760; 96374; J2405; J7620

== ENCOUNTER 2024-01-07 17:06 | Emergency (ER) | payer MEDICARE, OTHER ==
[2024-01-07 18:00] LABS: #Basophils 0.1 thou/uL (0.0-0.2); #Lymphocytes 0.6 thou/uL (1.20-3.40); #Monocytes 0.3 thou/uL (0.11-0.59); #Neutrophils 10.8 thou/uL (1.40-6.50); %Basophils 0.8 % (0.0-1.0); %Eosinophils 0.1 % (0.0-10.0); %Lymphocytes 4.7 % (21.0-51.0); %Monocytes 2.8 % (0.0-10.0); %Neutrophils 91.7 % (42.0-75.0); Hematocrit 40.9 % (42.0-52.0); Hemoglobin 11.5 g/dL (14.0-18.0); Mean Corpuscular HGB CONC 28.2 g/dL (32.0-36.0); Mean Corpuscular Hemoglobin 23.8 pg (27.0-31.0); Mean Corpuscular Volume 84.4 fl (78.0-98.0); Mean Platelet Volume 8.8 fL (7.4-10.4); Platelet Count 206 10x3/uL (130-400); RBC Distribution Width 15.5 % (11.5-14.5); Red Blood Cell (RBC) Count 4.84 mill/uL (4.70-6.10); White Blood Cell (WBC) Count 11.8 10x3/uL (4.8-10.8)
[2024-01-07] MEDS ORDERED: Albuterol 2.5 MG (0.5 mL) NEB ONE ×2 (18:02→19:43)
[2024-01-07] MEDS ORDERED: Sodium Chloride 0.9% 500 ML ONE ×3 (18:02→23:25)
[2024-01-07] MEDS ORDERED: Ipratropium/Albuterol 3 ML NEB ONE ×3 (18:02→23:25)
[2024-01-07 18:07] LABS: ALT (SGPT) 22 U/L (8-55); AST (SGOT) 13 U/L (5-34); Albumin 4.1 g/dL (3.4-4.8); Alkaline Phosphatase 62 U/L (40-110); Anion Gap 13 mmol/L (10-20); BUN (Urea Nitrogen) 16 mg/dL (8.4-25.7); Bilirubin, Total 0.6 mg/dL (0.2-1.2); Calc. Creatinine Clearance 0 mL/min (70-130); Calcium 9.1 mg/dL (7.8-10.44); Carbon Dioxide 34 mmol/L (23-31); Chloride 99 mmol/L (98-107); Estimated GFR 98; Globulin 2.2 g/dL (2.4-3.5); Glucose 138 mg/dL (80-115); Potassium 3.9 mmol/L (3.5-5.1); Protein, Total 6.3 g/dL (5.8-8.1); Sodium 142 mmol/L (136-145)
[2024-01-07 18:17] LABS: Anisocytosis SLIGHT = 6-15 cells (100X) (0-5/hpf); Hypochromia SLIGHT = 6-15 cells (100X) (0-5/hpf)
[2024-01-07] MEDS ORDERED: Albuterol 2.5 MG (3 mL) NEB ONE (19:43)
[2024-01-08] MEDS ORDERED: Ipratropium/Albuterol 3 ML NEB ONE ×2 (01:42→02:53)
[2024-01-08] MEDS ORDERED: Albuterol 2.5 MG (3 mL) NEB ONE (02:52)
[2024-01-08] MEDS ORDERED: cefTRIAXone (ROCEPHIN) 1 GM VIAL ONE (02:53)
[2024-01-08] MEDS ORDERED: Albuterol 2.5 MG (0.5 mL) NEB ONE (03:27)
== END 2024-01-08 04:05 | disposition short-term general hospital (02) ==
LOC: MADERS 17:06
DX: J44.1 Chronic obstructive pulmonary disease with (acute) exacerbation (principal); J96.01 Acute respiratory failure with hypoxia; Z87.891 Personal history of nicotine dependence
CPT/HCPCS: 36415; 71045; 80053; 85025; 93005; 96374; J0696; J7030; J7611; J7620

== ENCOUNTER 2024-02-27 17:02 | Emergency (ER) | payer MEDICARE, MEDICAID ==
[~2024-02-27 17:02] MED LIST changes: -Albuterol 2.5 MG/0.5 ML NEB ONE; +Iopamidol 370 76% 100 ML VIAL ONE; -Ipratropium/Albuterol 3 ML NEB ONE; +Sodium Chloride 0.9% 100 ML BAG ONE
[2024-02-27] MEDS ORDERED: cefTRIAXone (ROCEPHIN) 2 GM VIAL ONE (17:29)
[2024-02-27] MEDS ORDERED: Sodium Chloride 0.9% 100 ML ONE (17:29)
[2024-02-27] MEDS ORDERED: Ipratropium/Albuterol 3 ML NEB ONE (17:29)
[2024-02-27] MEDS ORDERED: Albuterol 2.5 MG (0.5 mL) NEB ONE ×3 (17:29→19:51)
[2024-02-27] MEDS ORDERED: Albuterol 2.5 MG (3 mL) NEB ONE (17:29)
[2024-02-27 17:46] LABS: Prothrombin Time 13.1 sec (12.0-14.7)
[2024-02-27 17:48] LABS: #Lymphocytes 0.3 thou/uL (1.20-3.40); #Monocytes 0.1 thou/uL (0.11-0.59); #Neutrophils 8.9 thou/uL (1.40-6.50); %Basophils 0.3 % (0.0-1.0); %Lymphocytes 2.9 % (21.0-51.0); %Neutrophils 95.8 % (42.0-75.0); Hematocrit 41.6 % (42.0-52.0); Hemoglobin 12.6 g/dL (14.0-18.0); Mean Corpuscular HGB CONC 30.3 g/dL (32.0-36.0); Mean Corpuscular Hemoglobin 25.6 pg (27.0-31.0); Mean Corpuscular Volume 84.4 fl (78.0-98.0); Mean Platelet Volume 8.2 fL (7.4-10.4); Platelet Count 159 10x3/uL (130-400); RBC Distribution Width 14.8 % (11.5-14.5); Red Blood Cell (RBC) Count 4.94 mill/uL (4.70-6.10); White Blood Cell (WBC) Count 9.3 10x3/uL (4.8-10.8)
[2024-02-27 17:58] LABS: ALT (SGPT) 17 U/L (8-55); AST (SGOT) 9 U/L (5-34); Albumin 3.9 g/dL (3.4-4.8); Alkaline Phosphatase 54 U/L (40-110); Anion Gap 15 mmol/L (10-20); BUN (Urea Nitrogen) 12 mg/dL (8.4-25.7); Bilirubin, Total 1.2 mg/dL (0.2-1.2); Calc. Creatinine Clearance 0 mL/min (70-130); Calcium 8.4 mg/dL (7.8-10.44); Carbon Dioxide 28 mmol/L (23-31); Chloride 102 mmol/L (98-107); Estimated GFR 95; Glucose 192 mg/dL (80-115); Lipase 53 U/L (8-78); Magnesium 2.2 mg/dL (1.6-2.6); Protein, Total 5.9 g/dL (5.8-8.1); Sodium 142 mmol/L (136-145); Troponin I Less than 0.010 ng/mL (< 0.028)
[2024-02-27] MEDS ORDERED: Potassium Chloride 20 MEQ TAB ONE (18:04)
[2024-02-27 18:35] LABS: Influenza A by NAA Not Detected (NotDetected); Influenza B by NAA Not Detected (NotDetected); SARS-CoV-2 NAA Rapid Test Not Detected (NotDetected)
[2024-02-27] MEDS ORDERED: Ipratropium Bromide 2.5 ml Neb ONE ×2 (18:41→19:51)
[2024-02-27 20:08] LABS: Lactic Acid 2.6 mmol/L (0.5-2.2)
[2024-02-27] MEDS ORDERED: Magnesium 2 GM/50 ML BAG (IN WATER) ONE (22:00)
[2024-02-27] MEDS ORDERED: Sodium Chloride 0.9% 1,000 ML ONE (22:00)
== END 2024-02-27 22:37 | disposition short-term general hospital (02) ==
LOC: MADERS 17:02
DX: K56.609 Unspecified intestinal obstruction, unspecified as to partial versus complete obstruction (principal); K80.20 Calculus of gallbladder without cholecystitis without obstruction; J44.1 Chronic obstructive pulmonary disease with (acute) exacerbation; E87.6 Hypokalemia; E87.20 Acidosis, unspecified; E11.9 Type 2 diabetes mellitus without complications; I10 Essential (primary) hypertension; Z87.891 Personal history of nicotine dependence
CPT/HCPCS: 36415; 43753; 71045; 71275; 74177; 80053; 83605; 83690; 83735; 84443; 84484; 85025; 85610; 87040; 93005; 94760; 96361; 96365; 96375; J0696; J3475; J3490; J7050; J7611; J7620; Q9967

== ENCOUNTER 2024-03-13 12:47 | Emergency (ER) | payer MEDICARE, MEDICAID ==
[2024-03-13] MEDS ORDERED: Ipratropium/Albuterol 3 ML NEB ONE (13:12)
[2024-03-13] MEDS ORDERED: Sodium Chloride 0.9% 500 ML ONE (13:12)
[2024-03-13] MEDS ORDERED: methylPREDNISolone Sod Succ/PF 125 MG/2 ML VIAL ONE (13:12)
== END 2024-03-13 18:15 ==
LOC: MADERS 12:47
DX: J44.1 Chronic obstructive pulmonary disease with (acute) exacerbation (principal); B19.20 Unspecified viral hepatitis C without hepatic coma; E11.9 Type 2 diabetes mellitus without complications; I10 Essential (primary) hypertension; K21.9 Gastro-esophageal reflux disease without esophagitis; G30.9 Alzheimer's disease, unspecified; H35.30 Unspecified macular degeneration; Z87.891 Personal history of nicotine dependence; Z79.899 Other long term (current) drug therapy
CPT/HCPCS: 71045; 93005; 96374; J2930; J7030; J7620

== ENCOUNTER 2024-04-23 06:11 | Emergency (ER) | payer MEDICARE, MEDICAID ==
[2024-04-23] MEDS ORDERED: methylPREDNISolone Sod Succ/PF 125 MG/2 ML VIAL ONE (06:32)
[2024-04-23] MEDS ORDERED: Lorazepam 2 MG/ML VIAL ONE (06:32)
[2024-04-23 07:12] LABS: Prothrombin Time 13.2 sec (12.0-14.7)
[2024-04-23 07:17] LABS: PTT 21.6 sec (22.9-36.1)
[2024-04-23 07:25] LABS: Band 1 % (5-11); Hematocrit 47.4 % (42.0-52.0); Lymphocytes 4 % (21-51); MDiff Complete? YES; Mean Corpuscular HGB CONC 29.4 g/dL (32.0-36.0); Mean Corpuscular Hemoglobin 26.1 pg (27.0-31.0); Mean Corpuscular Volume 88.7 fl (78.0-98.0); Mean Platelet Volume 7.4 fL (7.4-10.4); Monocytes 4 % (0-10); Neutrophil 91 % (42-75); Platelet Adequacy Comment Appears Adequate; Platelet Count 210 10x3/uL (130-400); RBC Distribution Width 15.2 % (11.5-14.5); Red Blood Cell (RBC) Count 5.34 mill/uL (4.70-6.10); Troponin I Less than 0.010 ng/mL (< 0.028); White Blood Cell (WBC) Count 22.3 10x3/uL (4.8-10.8)
[2024-04-23] MEDS ORDERED: Sodium Chloride 0.9% 100 ML ONE (07:25)
[2024-04-23] MEDS ORDERED: Piperacillin/Tazobactam 3.375 GM VIAL ONE (07:25)
[2024-04-23] MEDS ORDERED: dilTIAZem 25 MG/5 ML VIAL ONE (07:25)
[2024-04-23 07:29] LABS: Anion Gap 19 mmol/L (10-20); BUN (Urea Nitrogen) 24 mg/dL (8.4-25.7); Calc. Creatinine Clearance 0 mL/min (70-130); Carbon Dioxide 26 mmol/L (23-31); Chloride 100 mmol/L (98-107); Estimated GFR 88; Glucose 277 mg/dL (80-115); Potassium 3.9 mmol/L (3.5-5.1); Sodium 141 mmol/L (136-145)
[2024-04-23 07:30] LABS: Base Excess-Venous 3.6 mmol/L (-2.0 to 3.0); Bicarbonate (HCO3v) 28.9 mmol/L (22.0-28.0); Calcium, Ionized 1.07 mmol/L (1.15-1.33); Chloride 99 mmol/L (98-107); Hemoglobin - Calc 15.3 g/dL (14.0-18.0); Potassium 3.7 mmol/L (3.5-5.1); Sodium 137 mmol/L (138-145); T. Carbon Dioxide 30.3 mmol/L (22.0-28.0); vO2 Saturation-calc 99.2 % (60.0-85.0)
== END 2024-04-23 08:42 | disposition short-term general hospital (02) ==
LOC: MADERS 06:11
DX: J44.1 Chronic obstructive pulmonary disease with (acute) exacerbation (principal); R09.02 Hypoxemia; R65.10 Systemic inflammatory response syndrome (SIRS) of non-infectious origin without acute organ dysfunction; R00.0 Tachycardia, unspecified; E11.9 Type 2 diabetes mellitus without complications; I10 Essential (primary) hypertension; Z87.891 Personal history of nicotine dependence
CPT/HCPCS: 36415; 43753; 71045; 74018; 80048; 82330; 82803; 83605; 83880; 84484; 85025; 85610; 85730; 87040; 93005; 96361; 96365; 96375; J2060; J2543; J2919

== ENCOUNTER 2024-05-19 01:18 | Emergency (ER) | payer MEDICARE, MEDICAID ==
[2024-05-19 01:51] LABS: #Basophils 0.1 thou/uL (0.0-0.2); #Lymphocytes 0.9 thou/uL (1.20-3.40); #Monocytes 1.1 thou/uL (0.11-0.59); #Neutrophils 22.1 thou/uL (1.40-6.50); %Basophils 0.4 % (0.0-1.0); %Eosinophils 0.1 % (0.0-10.0); %Lymphocytes 3.5 % (21.0-51.0); %Monocytes 4.7 % (0.0-10.0); %Neutrophils 91.2 % (42.0-75.0); Hematocrit 45.1 % (42.0-52.0); Hemoglobin 13.5 g/dL (14.0-18.0); Mean Corpuscular HGB CONC 29.9 g/dL (32.0-36.0); Mean Corpuscular Hemoglobin 25.8 pg (27.0-31.0); Mean Corpuscular Volume 86.4 fl (78.0-98.0); Mean Platelet Volume 6.8 fL (7.4-10.4); Platelet Count 330 10x3/uL (130-400); Red Blood Cell (RBC) Count 5.22 mill/uL (4.70-6.10); White Blood Cell (WBC) Count 24.2 10x3/uL (4.8-10.8)
[2024-05-19 02:05] LABS: ALT (SGPT) 21 U/L (8-55); AST (SGOT) 13 U/L (5-34); Albumin 3.6 g/dL (3.4-4.8); Alkaline Phosphatase 66 U/L (40-110); Anion Gap 18 mmol/L (10-20); BUN (Urea Nitrogen) 14 mg/dL (8.4-25.7); Bilirubin, Total 0.8 mg/dL (0.2-1.2); Calc. Creatinine Clearance 0 mL/min (70-130); Calcium 9.2 mg/dL (7.8-10.44); Carbon Dioxide 30 mmol/L (23-31); Chloride 97 mmol/L (98-107); Estimated GFR 100; Globulin 3.2 g/dL (2.4-3.5); Glucose 110 mg/dL (80-115); Potassium 3.4 mmol/L (3.5-5.1); Protein, Total 6.8 g/dL (5.8-8.1); Sodium 142 mmol/L (136-145)
[2024-05-19 02:06] LABS: Troponin I 0.013 ng/mL (< 0.028)
[2024-05-19 02:42] LABS: Base Excess-Venous 9.4 mmol/L (-2.0 to 3.0); Bicarbonate (HCO3v) 32.5 mmol/L (22.0-28.0); CO2 Tension (PvCO2) 37.9 mmHg (42.0-51.0); Calcium, Ionized 0.99 mmol/L (1.15-1.33); Chloride 99 mmol/L (98-107); Hemoglobin - Calc 14.5 g/dL (14.0-18.0); Potassium 3.5 mmol/L (3.5-5.1); Sodium 138 mmol/L (138-145); T. Carbon Dioxide 33.7 mmol/L (22.0-28.0); vO2 Saturation-calc 98.9 % (60.0-85.0)
[2024-05-19 03:07] LABS: Bilirubin Negative (Negative); Blood, Urine Small (Negative); Clarity Slightly Cloudy (Clear); Glucose, Urine (Dipstick) Negative (Negative); Ketone, Urine Negative (Negative); Leukocyte Negative (Negative); Nitrite Negative (Negative); Protein, Urine (Dipstick) 100 mg/dL (Neg-Trace); Specific Gravity, Urine 1.025 (1.005-1.030)
[2024-05-19 03:13] LABS: Bacteria/HPF Rare-Few HPF (None Seen); CAUTI Indications for Culture Acute Hematuria; Calcium Oxalate Crystals 2+ HPF (None Seen); Squamous Epithelial 0-3 HPF (0-3)
[2024-05-19 03:14] LABS: Urine Culture Reflex No No
[2024-05-19 03:58] LABS: SARS-CoV-2 E Target Negative; SARS-CoV-2 N2 Target Negative; SARS-CoV-2 NAA Rapid Test Not Detected (NotDetected); SARS-CoV-2 RdRP gene Negative
== END 2024-05-19 04:03 | disposition short-term general hospital (02) ==
LOC: MADERS 01:18
DX: J96.00 Acute respiratory failure, unspecified whether with hypoxia or hypercapnia (principal); E11.9 Type 2 diabetes mellitus without complications; I10 Essential (primary) hypertension; Z87.891 Personal history of nicotine dependence; N20.0 Calculus of kidney
CPT/HCPCS: 71045; 74176; 80053; 81001; 82330; 82803; 83605; 83880; 84484; 85025; 87040; 87077; 87086; 87804; 93005; 96361; 96365; 96375; 96376; U0002